=== PATIENT | male | born 1970 | race Caucasian/White ===

== ENCOUNTER 2018-05-25 11:31 | Emergency (ER) | payer OTHER ==
[~2018-05-25] VITALS: Ht 172.7 cm; Wt 68.0 kg
[~2018-05-25 11:31] MED LIST: AUGMENTIN 875 M1 TAB PO; EC NAPROSYN500 MG PO; NORFLEX100 MG PO
--- NOTE | 2018-05-25 11:40 | ED UPPER/LOWER EXTREMITY COMPL ---
History of Present Illness General Chief Complaint: Neck/Upper Back Pain/Injury Stated Complaint: "I FELT SOMETHING POP IN MY BACK LAST NIGHT PAIN" Source: patient Exam Limitations: no limitations Vital Signs & Intake/Output Vital Signs & Intake/Output Vital Signs Date Time Temp Pulse Resp B/P B/P Pulse O2 O2 Flow FiO2 Mean Ox Delivery Rate 05/25 1336 98.4 88 18 132/79 99 05/25 1136 96.2 65 20 137/71 94 Room Air Allergies Coded Allergies: NO KNOWN ALLERGIES (07/22/12) Reconcile Medications AMOXICILLIN/POTASSIUM CLAV (Augmentin 875-125 Tablet) 875 MG/125 MG TAB 1 TAB PO BID DOG BITE Cyclobenzaprine HCl 10 MG TABLET 1 TAB PO TID SPASMS Ibuprofen 800 MG TABLET 1 TAB PO TID PAIN Naproxen (EC-Naprosyn) 500 MG TABLET.DR 500 MG PO BID PRN back pain Orphenadrine Citrate (Norflex) [address] 100 MG PO BID PRN PAIN MODERATE TO SEVERE Triage Note: STATES HE TURNED THE WRONG WAY LAST NIGHT AND FELT SOMETHING POP IN HIS RIGHT SHOULDER BLADE AREA. DENIES NECK PAIN Triage Nurses Notes Reviewed? yes Onset: Abrupt Duration: day(s): Timing: recent history Severity: moderate, severe Pain/Injury Location: Right: Shoulder. Method of Injury: unknown HPI: 47-year-old male comes into the emergency room for further evaluation of right shoulder pain. Patient reports that he felt something pop in his right shoulder when he was in the kitchen the other day and was turning. He's had pain since then with certain movements. Denies any falls. Denies any numbness or tingling. He comes in for further evaluation. He admits to being on Suboxone daily for previous opioid addiction. (Camden Colon) Past History Travel History Traveled to [place] past 21 day No Medical History Any Pertinent Medical History? see below for history Neurological: NONE EENT: NONE Cardiovascular: NONE Respiratory: NONE Gastrointestinal: NONE Hepatic: NONE Renal: NONE Musculoskeletal: NONE Psychiatric: opioid dependence Endocrine: NONE Blood Disorders: NONE Cancer(s): NONE HOME COORDINATOR/Reproductive: NONE Tetanus Vaccine: 09/13/14 Surgical History Surgical History: N Psychosocial History What is your primary language Guyanese Tobacco Use: Current Daily Use Daily Tobacco Use Amount/Type: => 5 Cigarettes daily ETOH Use: denies use Illicit Drug Use: denies illicit drug use Family History Hx Contributory? No (Camden Colon) Review of Systems Review of Systems Constitutional: Reports: no symptoms. EENTM: Reports: no symptoms. Respiratory: Reports: no symptoms. Cardiovascular: Reports: no symptoms. Gastrointestinal/Abdominal: Reports: no symptoms. Genitourinary: Reports: no symptoms. Musculoskeletal: Reports: see HPI. Skin: Reports: no symptoms. Neurological/Psychological: Reports: no symptoms. Hematologic/Endocrine: Reports: no symptoms. Immunological: Reports: no symptoms. All Other Systems: Reviewed and Negative (Camden Colon) Physical Exam Physical Exam General Appearance: well developed/nourished, mild distress Head: atraumatic Eyes: Bilateral: normal appearance. Ears, Nose, Throat: normal ENT inspection, hearing grossly normal Neck: normal inspection Cardiovascular/Respiratory: no respiratory distress Back: normal inspection Shoulder Right: soft tissue tenderness (right trapezius), limited range of motion, radial pulse 2+, therapeutic recreation specialist strength intact, gross sensation intact, Neurologic/Tendon: normal sensation, normal motor functions, normal tendon functions, responds to pain, no evidence tendon injury, no pulse deficit Skin: intact, normal color, warm/dry Diagram Shoulders Front/Back 1) (Kev GRAHAM,[place]) Progress Differential Diagnosis: contusion, dislocation, fracture, sprain, tendon injury, muscle strain Plan of Care: Orders Procedure Date/time Status XRY-SHOULDER COMPLETE-RIGHT 05/25 113 Active Current Medications Sig/Saroj Start time Last Medication Dose Stop Time Status Admin Ketorolac 60 MG ONCE ONE 05/25 1145 AC Tromethamine 05/25 1146 (Toradol) Diagnostic Imaging: Viewed by Me: Radiology Read. Discussed w/RAD: Radiology Read. Radiology Impression: PATIENT: JASBIR GONZALEZ PRESENT AGE: 47 PATIENT ACCOUNT NO: [id number] : 70 LOCATION: [facility] ORDERING PHYSICIAN: Camden GRAHAM SERVICE DATE: 05/25/18 EXAM TYPE: RAD - XRY-SHOULDER COMPLETE-RIGHT EXAMINATION: XR SHOULDER, RIGHT CLINICAL INFORMATION : Right shoulder pain. COMPARISON: None TECHNIQUE: Right shoulder, 3 views FINDINGS: Alignment is normal. No evidence of inflammatory or degenerative arthropathy at the glenohumeral or acromioclavicular joints. The humeral head is well-positioned over the intact glenoid. The acromiohumeral and coracoclavicular distances are normal. No soft tissue calcification or mass is seen. The visualized right lung is clear. IMPRESSION: Normal right shoulder. DICTATED BY: Leon Guillory MD DATE/TIME DICTATED:05/25/181220 [employer] CONSULTANT:ZOILA DATE/TIME TRANSCRIBED:05/25/181220 CONFIDENTIAL, DO NOT COPY WITHOUT APPROPRIATE AUTHORIZATION. <Electronically signed in Other Vendor System> SIGNED BY: Leon Guillory MD 05/25/181225 (Camden Colon) Departure Departure Disposition: HOME OR SELF CARE Condition: Stable Clinical Impression Primary Impression: Muscle strain of right shoulder Additional Instructions: Take ibuprofen and Flexeril PRESCRIBED. Follow-up with your primary care doctor. Return if any concerns worsening symptoms. Please go over all results of today's visit with your primary care doctor. Contact your primary care doctor to let them know you were here in the emergency room. There may be nonspecific findings which may not be related to your visit today here in the emergency room but may require further evaluation and chronic monitoring by your primary care doctor. If you had a laceration today the chance of foreign body always remains. You should follow-up with your primary care doctor for recheck in 3-5 days for a wound check. If you had an x-ray done there is a chance that a fracture could have been missed on initial read and you should follow-up with your primary care doctor for repeat x-rays if symptoms persist. If your blood pressure was elevated here in the emergency room please have rechecked by [facility] primary care doctor within the next 48. If you were prescribed a narcotic here in the emergency room or any type of controlled substances you're not allowed to drive while taking this medication or operate any type of heavy machinery. Narcotics can make you feel lightheaded dizziness nausea and can cause constipation. You may need to knot picker cloth a stool softener. Thank you for choosing [facility] emergency room. Please return to the emergency room immediately if you have any other concerns worsening of symptoms. Departure Forms: Customer Survey General Discharge Information Prescriptions: Current Visit Scripts Ibuprofen 1 TAB PO TID #30 TAB Cyclobenzaprine HCl 1 TAB PO TID #30 TAB Comments 05/25/2018 3:31:09 PM Patient clinically looks well. Patient is no apparent distress. Nontoxic- appearing. Pain is reproducible worse with range of motion making the consistent with muscular pain. (Camden Colon) PA/MEDIA BUYER Co-Sign Statement Statement: ED Attending supervision documentation- [] I saw and evaluated the patient. I have also reviewed all the pertinent lab results and diagnostic results. I agree with the findings and the plan of care as documented in the PA's/MEDIA BUYER's documentation. [X] I have reviewed the ED Record and agree with the PA's/MEDIA BUYER's documentation. [] Additions or exceptions (if any) to the PAs/MEDIA BUYER's note and plan are summarized below: [] (Juanito Iyer DO)
--- NOTE | 2018-05-25 12:26 | RADIOLOGY REPORT ---
EXAMINATION: XR SHOULDER, RIGHT CLINICAL INFORMATION: Right shoulder pain. COMPARISON: None TECHNIQUE: Right shoulder, 3 views FINDINGS: Alignment is normal. No evidence of inflammatory or degenerative arthropathy at the glenohumeral or acromioclavicular joints. The humeral head is well-positioned over the intact glenoid. The acromiohumeral and coracoclavicular distances are normal. No soft tissue calcification or mass is seen. The visualized right lung is clear. IMPRESSION: Normal right shoulder.
[2018-05-25 13:36] VITALS: BP 132/79
[2018-05-25] MEDS ORDERED: IBUPROFEN800 M1 PO (13:37)
[2018-05-25] MEDS ORDERED: CYCLOBENZAPRINE10 M1 PO (13:37)
== END 2018-05-25 13:40 ==
LOC: ERH 11:31
DX: S46.911A Strain of unspecified muscle, fascia and tendon at shoulder and upper arm level, right arm, initial encounter (principal); X58.XXXA Exposure to other specified factors, initial encounter
CPT/HCPCS: 73030-RT; 96372; J1885